=== PATIENT | male | born 1950 | race Caucasian/White ===

== ENCOUNTER 2017-12-04 09:39 | Emergency (ER) | payer OTHER ==
[~2017-12-04] VITALS: Ht 152.4 cm; Wt 79.4 kg
--- NOTE | 2017-12-04 09:54 | NUR ---
PT AMBULATORY W A WAKER TO ER BED 13. C/O DIARRHEA X 14 DAYS. GOWNED AND PLACED ON MONITOR. VSS. AWAITING MD DAVISON.
--- NOTE | 2017-12-04 10:24 | NUR ---
DR RUBIO AT BEDSIDE FOR EVAL.
--- NOTE | 2017-12-04 10:45 | NUR ---
IV LINE STARTED BLOOD DRAWN AND SENT TO LAB.
[2017-12-04] MEDS: IV NS 0.9% 1,000 ML BAG IV ONE (10:49)
[2017-12-04 10:51] LABS: LYMPHOCYTES # (AUTO) 0.6 /CMM (0.8-4.8)
[2017-12-04 10:52] LABS: BASOPHILS % (AUTO) 0.2 % (0.0-2.0); LYMPHOCYTES % (AUTO) 4.8 % (20.0-44.0); WHITE BLOOD COUNT (AUTO) 12.4 K/uL (4.3-11.0)
[2017-12-04 10:53] LABS: EOSINOPHILS % (AUTO) 0.2 % (0.0-6.0); HEMATOCRIT 38 % (39-51); HEMOGLOBIN 12.5 g/dL (13.5-17.5); MEAN CORPUSCULAR HEMOGLOBIN 28 PG (26.0-33.0); MEAN CORPUSCULAR HGB CONC 33 g/dl (31.0-36.0); MEAN CORPUSCULAR VOLUME 86 fL (80-96); MONOCYTES # (AUTO) 1.3 /CMM (0.1-1.30); MONOCYTES % (AUTO) 10.4 % (2.0-12.0); NEUTROPHILS # (AUTO) 10.6 /CMM (1.8-8.9); NEUTROPHILS % (AUTO) 84.4 % (43.0-81.0); PLATELET COUNT (AUTO) 378 /CMM (150-450); RDW COEFFICIENT OF VARIATION 13.1 (11.5-15.0); RED BLOOD CELL COUNT(AUTO) 4.47 MIL/uL (4.5-6.0)
[2017-12-04 11:00] LABS: CALCIUM, SERUM 9.6 mg/dL (8.5-10.1); CREATININE 1.6 mg/dL (0.6-1.3); POTASSIUM 3.4 mmol/L (3.5-5.1)
[2017-12-04 11:06] LABS: BILIRUBIN,DIRECT 0.2 mg/dL (0.0-0.2); BILIRUBIN,TOTAL 0.7 mg/dL (0.2-1.0); TOTAL PROTEIN, SERUM 7.8 g/dL (6.4-8.2)
--- NOTE | 2017-12-04 11:46 | NUR ---
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
[2017-12-04] MEDS ORDERED: MORPHINE SULFATE INJ 4 MG/ML DISP.SYRIN ONE ×2 (12:00→20:29)
[2017-12-04] MEDS: MORPHINE SULFATE INJ 2 MG/ML DISP.SYRIN IV ONE ×2 (12:04→20:35)
[2017-12-04] MEDS ORDERED: IV NS 0.9% 1,000 ML IV PRN (12:13)
[2017-12-04] MEDS ORDERED: Z GUARD REMEDY 2 OZ OINT TP PRN (12:30)
[2017-12-04] MEDS ORDERED: ENOXAPARIN SODIUM 40 MG/0.4 ML DISP.SYRIN SQ SCH (12:30)
[2017-12-04] MEDS ORDERED: ONDANSETRON HCL/PF 4 MG/2 ML VIAL IVP PRN (12:30)
[2017-12-04] MEDS ORDERED: HYDROCODONE/APAP 5/325MG 1 EACH TABLET PO PRN (12:30)
[2017-12-04] MEDS ORDERED: ZOLPIDEM TARTRATE 5 MG TABLET PO PRN (12:30)
[2017-12-04] MEDS ORDERED: LOPERAMIDE HCL (2 MG CAP) 2 MG CAPSULE PO PRN (12:30)
[2017-12-04] MEDS ORDERED: hydrALAZINE HCL 25 MG TABLET PO PRN (12:30)
[2017-12-04] MEDS ORDERED: MAGNESIUM HYDROXIDE 30 ML UDC PO PRN (12:30)
[2017-12-04] MEDS ORDERED: INSULIN REGULAR, HUMAN 100 UNIT/ML 3 ML VIAL SQ PRN (12:30)
[2017-12-04] MEDS ORDERED: MORPHINE SULFATE INJ 2 MG/ML DISP.SYRIN IM PRN (12:30)
[2017-12-04] MEDS ORDERED: *INSULIN REGULAR(HUMULIN R)HUM 100 UNIT/ML VIAL SQ PRN (12:30)
[2017-12-04] MEDS ORDERED: MAG HYDROX/AL HYDROX/SIMETH 30 ML UDC PO PRN (12:30)
[2017-12-04] MEDS ORDERED: ACETAMINOPHEN 325 MG TABLET PO PRN (12:30)
[2017-12-04] MEDS ORDERED: POTASSIUM CHLORIDE 20 MEQ TAB.PRT.SR PO ONE (12:30)
[2017-12-04] MEDS ORDERED: DEXTROSE 50%-WATER 50 ML DISP.SYRIN IV PRN (12:30)
[2017-12-04] MEDS ORDERED: METF10004 PO (12:41)
[2017-12-04] MEDS ORDERED: BENA40TA8 PO (12:41)
[2017-12-04] MEDS ORDERED: NIFE30TA91 PO (12:41)
[2017-12-04] MEDS ORDERED: METO50TA16 PO (12:41)
[2017-12-04] MEDS ORDERED: GLIM4TAB2 PO (12:41)
--- NOTE | 2017-12-04 12:41 | NUR ---
REPORT GIVEN TO JAIME SPENCER. PT AWAITING TRANSFER TO FLOOR.
--- NOTE | 2017-12-04 15:10 | NUR ---
PT TRANSFERED BACK FROM MED SURG FLOOR BACK TO ER BED 13. WILL CONTINUE TO MONITOR.
[2017-12-04] MEDS ORDERED: BLOOD SUGAR DIAGNOSTIC 1 EACH STRIP VI SCH (17:30)
--- NOTE | 2017-12-04 17:59 | NUR ---
called [facility], no transfer info available. Informed them that the patient has been waiting for transfer since 929 this morning
[2017-12-04] MEDS ORDERED: METRONIDAZOLE 500MG/ NS 100ML 250 MG in PREMIX 1 EA IV SCH (18:00)
--- NOTE | 2017-12-04 18:35 | NUR ---
Pt accepted to [facility] Unit 4G Number for report is [phone] Addendum: 12/04/17 at 1843 by JACK joel for transport [id number]
--- NOTE | 2017-12-04 19:02 | NUR ---
CALLED [address] TO GIVE REPORT. PER ARAMIS, NURSES ARE AT SHIFT CHANGE. WANT TO CALL BACK AFTER 20 MINS.
--- NOTE | 2017-12-04 19:25 | NUR ---
REPORT GIVEN TO JAME AT [facility]. AWAITING TRANPORT AMBULANCE.
[2017-12-04 20:16] VITALS: BP 129/73
[2017-12-04] MEDS ORDERED: ONDANSETRON HCL/PF 4 MG/2 ML VIAL ONE (20:28)
[2017-12-04] MEDS: ONDANSETRON HCL/PF - ER 4 MG/2 ML VIAL IV ONE (20:35)
--- NOTE | 2017-12-04 21:05 | NUR ---
gave patieng food and updated vs
--- NOTE | 2017-12-04 22:09 | NUR ---
report given to [facility] for transport
== END 2017-12-04 13:07 | disposition other institution (70) ==
LOC: ER 09:40
DX: R19.7 Diarrhea, unspecified (principal); I10 Essential (primary) hypertension; E11.9 Type 2 diabetes mellitus without complications
CPT/HCPCS: 36415; 80048-TC; 80076-TC; 85025-TC; 87040-TC; 87081-TC; A4216; A4606; J1815; J2270; J2405; J3490; J7030; Z7610